=== PATIENT | male | born 2000 | race Two or more races ===

== ENCOUNTER 2019-02-02 13:01 | Emergency (ER) | payer MEDICAID, OTHER ==
[~2019-02-02] VITALS: Ht 182.9 cm; Wt 77.1 kg
[2019-02-02 13:27] VITALS: BP 108/59
[2019-02-02] MEDS ORDERED: IBUPROFEN 400 MG TABLET PO ONE (14:00)
[2019-02-02] MEDS ORDERED: IBUPROFEN 400 MG TABLET ONE (14:13)
[2019-02-02] MEDS ORDERED: IBUPROFEN 200 MG TABLET ONE (14:14)
== END 2019-02-02 15:14 | disposition home or self-care (01) ==
LOC: ER 13:01
DX: M25.561 Pain in right knee (principal)
CPT/HCPCS: 73564-TC

== ENCOUNTER 2019-04-03 22:30 | Emergency (ER) | payer SELFPAY ==
[~2019-04-03] VITALS: Ht 182.9 cm; Wt 74.8 kg
[2019-04-03 22:41] VITALS: BP 137/74
[2019-04-03 23:38] LABS: MONOTEST NEGATIVE (NEGATIVE)
--- NOTE | 2019-04-04 00:10 | NUR ---
Patient discharged to home in stable condition. Written and verbal after care instructions given. Patient verbalizes understanding of instruction. Pt ambulatory with a steady gait
== END 2019-04-04 | disposition home or self-care (01) ==
LOC: ER 22:31
DX: B34.9 Viral infection, unspecified (principal)
CPT/HCPCS: 36415; 86308-TC

== ENCOUNTER 2025-03-06 13:45 | Emergency (ER) | payer MEDICAID ==
[~2025-03-06] VITALS: Ht 180.3 cm; Wt 90.7 kg
[2025-03-06 13:54] VITALS: BP 97/45; TEMP 98.2; O2SAT 100
[2025-03-06] MEDS ORDERED: IBUPROFEN 600 MG TABLET ONE (14:28)
[2025-03-06] MEDS ORDERED: ACETAMINOPHEN ES 500 MG TABLET ONE (14:28)
[2025-03-06] MEDS: IBUPROFEN 600 MG TABLET PO ONE (14:31)
[2025-03-06] MEDS: ACETAMINOPHEN ES 500 MG TABLET PO ONE (14:31)
[2025-03-06] MEDS ORDERED: IBUP-1490 PO (17:26)
[2025-03-06] MEDS ORDERED: ONDANSETRON HCL/PF 4 MG/2 ML VIAL IV ONE (18:00)
== END 2025-03-06 17:40 | disposition home or self-care (01) ==
LOC: ER 13:59
DX: M25.571 Pain in right ankle and joints of right foot (principal)
CPT/HCPCS: 73610-TC